=== PATIENT | female | born 1965 ===

== ENCOUNTER 2024-06-07 08:45 | Inpatient (IN) | payer OTHER ==
[~2024-06-07] VITALS: Ht 61 cm; Wt 86.2 kg
[2024-06-07 09:35] LABS: PH,URINE 5.5 (5.0-8.0); URINE APPEARANCE Clear; URINE BILIRRUBIN Negative (NEGATIVE); URINE BLOOD Negative; URINE COLOR Yellow; URINE GLUCOSE Negative (NEGATIVE); URINE KETONE Trace (NEGATIVE); URINE LEUKOCYTE Trace; URINE NITRATE Negative; URINE PROTEIN Negative (NEGATIVE); URINE UROBILINOGEN 0.2 E.U./dl
[2024-06-07 09:35] LABS: HEMATOCRIT 38.8 % (36.0-45.00); HEMOGLOBIN 12.9 g/dL (12.0-15.00); MEAN CELL VOLUME 86.8 fL (80.00-100.00); MEAN CORPUSCULAR HEMOGLOBIN 28.9 pg (27.00-32.0); MEAN CORPUSCULAR HGB CONC 33.3 g/dl (32.0-36.0); PLATELET COUNT 286 K/uL (150-450); RED BLOOD COUNT 4.48 M/uL (4.00-6.00); RED CELL DISTRIBUTION WIDTH 13.7 % (11.5-14.5)
[2024-06-07 09:38] LABS: URINE BACTERIA 26.4 uL (0.0-1933); URINE EPITHELIAL CELLS 6.3 uL (0.0-38.8); URINE RBC 15.2 uL (0.0-20.8); URINE WBC 13.2 uL (0.0-23.2)
[2024-06-07 09:52] VITALS: BP 136/81
[2024-06-07 10:12] LABS: PARTIAL THROMBOPLASTIN TIME 29.1 SECONDS (22.0-34.0); PROTHROMBIN TIME 10.9 SECONDS (9.0-11.5)
[2024-06-07 10:34] LABS: BILIRUBIN TOTAL 0.46 mg/dL (0.3-1.2); CALCIUM 9.4 mg/dL (8.5-10.1); CREATININE SERUM 0.65 mg/dL (0.55-1.02); GFR 93.29; GLOBULINA 3.9 G/DL (2.4-3.5); POTASSIUM 4.68 mEq/L (3.5-5.1); TOTAL PROTEIN 7.9 gm/dL (6.4-8.2)
[2024-06-11] MEDS ORDERED: DEXAMETHASONE SODIUM PHOSPHATE 4 MG/ML VIAL IV ONE (10:45)
[2024-06-11] MEDS ORDERED: CEFAZOLIN SODIUM 1,000 MG VIAL IV ONE (10:45)
[2024-06-11] MEDS ORDERED: ENALAPRILAT DIHYDRATE 1.25 MG/ML VIAL IV PRN (11:45)
[2024-06-11] MEDS ORDERED: ONDANSETRON HCL 2 MG/ML VIAL IV PRN (11:45)
[2024-06-11] MEDS ORDERED: CYCLOBENZAPRINE HCL 5 MG TABLET PO SCH (11:46)
[2024-06-11] MEDS ORDERED: ACETAMINOPHEN 500 MG GEL..CAP PO SCH (13:00)
[2024-06-11] MEDS ORDERED: TRAMADOL HCL 50 MG TABLET PO SCH (13:00)
[2024-06-11 16:30] VITALS: BP 138/65; O2SAT 99
[2024-06-11] MEDS ORDERED: Calcium Carbonate 1 TAB TABLET PO SCH ×2 (17:00→21:00)
[2024-06-11 20:00] VITALS: BP 119/72; O2SAT 95
[2024-06-11] MEDS ORDERED: CALCITRIOL 0.5 MCG CAPSULE PO SCH (20:00)
[2024-06-11] MEDS ORDERED: PANTOPRAZOLE SODIUM 40 MG/VIAL VIAL IV PUSH SCH (21:00)
[2024-06-12 00:30] VITALS: BP 100/70; BP 121/58; O2SAT 86; O2SAT 98
[2024-06-12 01:00] VITALS: BP 120/73; O2SAT 90
[2024-06-12] MEDS ORDERED: LEVOTHYROXINE SODIUM 100 MCG TABLET PO SCH (06:00)
[2024-06-12] MEDS ORDERED: CALCITRIOL 0.5 MCG CAPSULE PO SCH (09:00)
[2024-06-12 09:42] VITALS: BP 121/62; O2SAT 96
== END 2024-06-12 09:54 | disposition home or self-care (01) | DRG 627 ==
LOC: SURH 06-11 05:14 → O/R 06-11 05:14 → SURH 06-11 08:45
PROVIDERS: ADMIT Surgery; ATTEND Surgery
PROC: 0GTG0ZZ Resection of Left Thyroid Gland Lobe, Open Approach (ICD-10-PCS; principal; 2024-06-11 15:00)
DX: C73 Malignant neoplasm of thyroid gland (principal); Z20.822 Contact with and (suspected) exposure to COVID-19